=== PATIENT | female | born 1960 | race Caucasian/White ===

== ENCOUNTER 2023-12-01 09:47 | Outpatient (CLI) | payer MEDICARE, SELFPAY | END 2023-12-01 09:48 | disposition home or self-care (01) | LOC: AMB 12-05 08:08 | PROVIDERS: Visit Provider Emergency Medicine | DX: S89.92XA Unspecified injury of left lower leg, initial encounter (principal); W01.0XXA Fall on same level from slipping, tripping and stumbling without subsequent striking against object, initial encounter; Y92.008 Other place in unspecified non-institutional (private) residence as the place of occurrence of the external cause | CPT/HCPCS: A0425; A0433 ==